=== PATIENT | female | born 1985 | race Caucasian/White ===

== ENCOUNTER 2016-12-24 22:44 | Outpatient (CLI) | payer MEDICAID ==
[~2016-12-24] VITALS: Ht 154.9 cm; Wt 76.4 kg
[~2016-12-24 22:44] MED LIST: [UNRECOGNIZED DRUG - REMARK]
[2016-12-24 23:19] VITALS: BP 117/56; PULSE 77; RESP 18; Ht 154.9 cm; Wt 76.4 kg
[2016-12-24] MEDS ORDERED: PRENAT PO (23:25)
[2016-12-24] MEDS ORDERED: CALC-134 PO (23:25)
[2016-12-24] MEDS ORDERED: FERR134T PO (23:25)
--- NOTE | 2016-12-25 03:02 | RADRPT ---
PROCEDURE: Obstetrical ultrasound, limited. CLINICAL INDICATION: Pelvic pain. TECHNIQUE: Multiple sonographic images of the pelvis were obtained using transabdominal technique . Images were obtained with ding scale and color Doppler. Endovaginal evaluation of the cervix was also performed. The images were reviewed on a PACS workstation. COMPARISON: No prior studies are available for comparison. FINDINGS: There is a single living intrauterine gestation with the fetus in a vertex presentation with the martinez ds presenting first. heart tones of 161 beats per minute are identified. The placenta is pos terior in location, grade 0. There is normal amniotic fluid volume with an FRANCIS of 7.0 cm made with a single quadrant. The cervix is closed measuring 4.0 cm. There is no evidence of placenta previa or abruption. IMPRESSION: Single viable intrauterine gestation. Cervical length of 4.0 cm. .Good Otero MD, MD Date Time Electronically viewed and signed by .Good Otero MD, MD on 12/25/2016 03:02 .T/
--- NOTE | 2016-12-25 03:26 | QN ---
Documentation Comment OB triage 24 wks with decreased FM currently feels the baby moves No LOF No Cxt No Vb NSt reasuring for GA Kimmie NL for Gestational age CXL >4cm --->discharged with Precuation PO HYdration is recommended Follow up in 2 days with Her private MD IVÁN JUAREZ M.D. Dec 25, 2016 03:26
--- NOTE | 2016-12-25 03:45 | TRIAGE ---
OB Triage Datetime Report Generated by CPN: 12/25/2016 03:45 Datetime: 12/25/2016 03:00 Labor Evaluation Frequency: none Monitor Mode: External Heart Rate FHR Baseline Rate: 160 Monitor Mode: External US FHR Baseline Changes: No Baseline Change Variability: Moderate 6-25 bpm Accelerations: 10X10 Decelerations: Variable Comments: WNL for GA Datetime: 12/25/2016 02:00 Heart Rate FHR Baseline Rate: 145 Monitor Mode: External US FHR Baseline Changes: No Baseline Change Variability: Moderate 6-25 bpm Accelerations: 10X10 Decelerations: Variable Comments: WNL for GA Datetime: 12/25/2016 01:00 Labor Evaluation Frequency: none Monitor Mode: External Heart Rate FHR Baseline Rate: 150 Monitor Mode: External US FHR Baseline Changes: No Baseline Change Variability: Moderate 6-25 bpm Accelerations: 10X10 Decelerations: Variable Comments: WNL for GA Datetime: 12/25/2016 00:35 Stage of : OB Triage Datetime: 12/25/2016 00:20 Monitor Mode: External US Datetime: 12/25/2016 00:00 Heart Rate FHR Baseline Rate: 150 Monitor Mode: External US FHR Baseline Changes: No Baseline Change Variability: Moderate 6-25 bpm Accelerations: 10X10 Decelerations: Variable Comments: WNL for GA Datetime: 12/24/2016 23:13 EGA: 24.5 Datetime: 12/24/2016 23:03 Assessment Type: Triage Maternal Assessment Level of Consciousness: Fully Conscious DTR's/Clonus: DTRs 2+; No Clonus Headache: Denies Blurred Vision: No Respiratory Effort: Unlabored; Regular Rhythm; Equal Expansion Breath Sounds, Left: Clear and Equal Breath Sounds, Right: Clear and Equal Nausea/Vomiting: Denies RUQ Epigastric Pain: Denies Lower Extremities Edema: None Degree: None Upper Extremities Edema: None Degree: None Facial Edema: None Fall Risk Assessment History of Falling: (0) No Secondary Diagnosis: (0) No Ambulatory Aid: (0) Bedrest/Nurse Assist IV Therapy: (0) No Gait: (0) Normal/Bedrest/Immobile Mental Status: (0) Oriented to Own Ability Fall Score: 0 Fall Risk Score Definition: No Risk: No action required Datetime: 12/24/2016 23:00 Time of Arrival: 12/24/2016 22:40 Arrived By: Wheelchair Arrived From: Home Chief Complaint: DFM since 1700 Contractions: Denies/Absent Rupture of Membranes: Denies Vaginal Bleeding: None Vaginal Discharge: Denies Recent Sexual Intercouse: Denies Abdominal Trauma: Not Applicable Patient Complaints: Other Time Provider Notified: 12/24/2016 23:44 Provider Notified: Dr Mendoza Initial Plan: NST, FI, CL
== END 2016-12-25 03:35 | disposition home or self-care (01) ==
LOC: OBT 22:44 → L-D 22:44 → OBT 12-25 03:35
PROVIDERS: ATTEND Obstetrics & Gynecology
DX: O36.8120 Decreased fetal movements, second trimester, not applicable or unspecified (principal); R10.2 Pelvic and perineal pain; Z3A.24 24 weeks gestation of pregnancy
CPT/HCPCS: 76815; 76817; Z7500; G0463

== ENCOUNTER 2017-03-12 19:08 | Outpatient (CLI) | END 2017-03-12 21:39 | disposition home or self-care (01) | DX: O41.93X0 Disorder of amniotic fluid and membranes, unspecified, third trimester, not applicable or unspecified (principal); O24.410 Gestational diabetes mellitus in pregnancy, diet controlled; Z3A.35 35 weeks gestation of pregnancy ==

== ENCOUNTER 2017-12-05 08:50 | Emergency (ER) | END 2017-12-05 11:25 | disposition home or self-care (01) ==